=== PATIENT | male | born 1945 | race Hispanic/Latino ===

== ENCOUNTER 2016-08-08 10:27 | Outpatient (CLI) | payer MEDICARE, OTHER ==
--- NOTE | 2016-08-10 09:01 | Cat Scan Report ---
CT OF THE ABDOMEN AND PELVIS WITH IV AND ORAL CONTRAST: HISTORY: Right flank pain. FINDINGS: There is a bilobed hypodense lesion in the superior aspect of the right lobe of the liver measuring 2.3 cm in diameter. The margins are somewhat indistinct. A second round hypodense lesion is seen in the anterior left lobe measuring 1.9 cm in diameter. The margins are well-defined. No additional focal hepatic lesions are seen although the liver parenchyma is generally hypodense. The spleen and pancreas are unremarkable. The gallbladder has been removed. The adrenal glands are normal. Bilateral lower pole renal cysts are noted, larger on the left measuring 2.9 cm in diameter. 2 cysts are seen in the lower pole of the left kidney and one in the lower pole of the right kidney. There is no hydronephrosis and no solid renal masses are seen. There are no pelvic masses or abnormal fluid collections. The appendix is normal. No mesenteric inflammation is seen. There is no free air. The prostate is mildly enlarged. No suspicious bony changes are seen. IMPRESSION: 1. Hepatic steatosis. 2. 2 focal hypodense liver lesions are probably benign. A follow-up study in [address] or ultrasound may be useful in further evaluation. 3. Small bilateral renal cysts. 4. Mild prostatic enlargement.
== END 2016-08-08 10:28 | disposition home or self-care (01) ==
LOC: SPVIMAG 10:27
PROVIDERS: ATTEND Internal Medicine Rheumatology
DX: R10.9 Unspecified abdominal pain (principal)
CPT/HCPCS: 74177; Q9967

== ENCOUNTER 2017-01-23 08:50 | Outpatient (CLI) | payer MEDICARE ==
--- NOTE | 2017-01-23 11:09 | Cat Scan Report ---
CT of the abdomen with IV contrast. History: 6 month followup study. Findings: Comparison is made to the previous study performed on August 08, 2016. The liver parenchyma is generally hypodense, unchanged since previous study. 2 hypoechoic lesions in the liver, one in the superior right lobe and the other in the anterior left lobe are again noted without interval change in size or configuration. The lesion in the superior right lobe measures 2.3 cm in diameter and is somewhat lobulated, and the margins are more distinct compared to the previous study. A hypodense lesion in the left lobe is sharply circumscribed and measures 1.9 cm in diameter. A subcentimeter round hypodense lesion is noted adjacent to the above lesion also in the left lobe. This may have been present on the previous study, but is better imaged due to technical factors on today's study. No additional liver lesions are seen. The spleen, pancreas, and adrenal glands are unremarkable. Small renal cysts are stable, and the kidneys are otherwise unremarkable. The gallbladder has been removed. There is no adenopathy in the retroperitoneum. No bony findings are seen. Impression: 1. The 2 hepatic lesions described on the previous study are stable in size and configuration and have benign features. A third subcentimeter hypodense lesion in the left lobe also appears benign. 2. Stable hepatic steatosis. 3. Stable benign renal cysts.
== END 2017-01-23 08:51 | disposition home or self-care (01) ==
LOC: SPVIMAG 08:50
PROVIDERS: ATTEND Internal Medicine Rheumatology
DX: N28.1 Cyst of kidney, acquired (principal); K76.0 Fatty (change of) liver, not elsewhere classified; K76.89 Other specified diseases of liver; Z90.49 Acquired absence of other specified parts of digestive tract
CPT/HCPCS: 74160; 82962; Q9967